=== PATIENT | female | born 1965 | race Two or more races ===

== ENCOUNTER 2017-07-19 09:53 | Inpatient (IN) | payer SELFPAY ==
[~2017-07-19] VITALS: Ht 157.5 cm; Wt 58.2 kg
[2017-07-19 10:39] LABS: Basophils # (auto) 0 uL; Basophils % (auto) 0.4 % (0.0-2.0); Eosinophils # (auto) 0.3 uL; Eosinophils % (auto) 3.8 % (0.0-7.0); Hematocrit 33.2 % (36.0-46.0); Hemoglobin 10.8 g/dL (12.2-16.2); Lymphocytes # (auto) 2.1 uL; Lymphocytes % (auto) 25.1 % (10.0-50.0); Mean Corpuscular Hemoglobin 31.2 pg (28.0-32.0); Mean Corpuscular Hgb Conc. 32.5 g/dL (32.0-36.0); Mean Corpuscular Volume 96.3 fL (80.0-100.0); Monocytes # (auto) 0.7 uL; Monocytes % (auto) 8.5 % (0.0-12.0); Neutrophils # (auto) 5.2 uL; Neutrophils % (auto) 62.2 % (37.0-80.0); Platelet Count (auto) 110 10^3/uL (140-450); Red Blood Cells 3.45 10^6/uL (4.0-5.20); Red Cell Distribution Width 16.3 % (11.8-14.3); White Blood Cell 8.4 10^3/uL (4.4-10.8)
[2017-07-19 11:10] LABS: Albumin 3.7 g/dL (3.4-5.0); BUN/Creatinine Ratio 5.9; Bilirubin, Total 0.7 mg/dL (0.2-1.0); Total Protein 7.8 g/dL (6.4-8.2)
[2017-07-19 11:33] LABS: Urine Bacteria FEW /hpf (None Seen); Urine Blood 2+ /uL (Negative); Urine Specific Gravity 1.011 (1.001-1.035); Urine WBC 56 /hpf (0 - 5)
[2017-07-19] MEDS ORDERED: ALBUTEROL SULF 2.5 MG/0.5ML(0.5%) NEB SOLN NEB STA (12:49)
[2017-07-19] MEDS ORDERED: SODIUM BICARBONATE 8.4% INJ 50ML SYRINGE IV ONE (13:00)
[2017-07-19] MEDS ORDERED: cefTRIAXone 1GM/10ml IVPUSH 10 ML IV ONE ×2 (13:00→13:30)
[2017-07-19] MEDS ORDERED: SODIUM POLYSTYRENE SULF 15GM/60ML SUSP PO ONE (13:00)
[2017-07-19] MEDS ORDERED: CALCIUM GLUC 4.65meq/50ml D5AE 50 ML IV ONE (13:00)
[2017-07-19] MEDS ORDERED: DEXTROSE (50%) 50ML SYRG IV ONE (13:00)
[2017-07-19] MEDS ORDERED: InsuLIN REG 1unit/0.01ml Soln (100units/ml) IV ONE (13:00)
[2017-07-19] MEDS ORDERED: DEXTROSE (50%) 50ML SYRG IV PRN (13:30)
[2017-07-19] MEDS ORDERED: TEMAZEPAM 15 MG CAP PO PRN (13:30)
[2017-07-19] MEDS ORDERED: LABETALOL HCL 200 MG TAB PO ONE (13:30)
[2017-07-19] MEDS ORDERED: MORPHINE SULFATE 4 MG/ML SYR/VIAL IV PRN ×2 (13:30)
[2017-07-19] MEDS ORDERED: NITROGLYCERIN 0.4 MG SL TAB SL PRN (13:30)
[2017-07-19] MEDS ORDERED: HYDROcodone-ACET 5/325MG TAB PO PRN (13:30)
[2017-07-19] MEDS ORDERED: PROMETHAZINE HCL 25 MG/ML 1ML IV PRN (13:30)
[2017-07-19] MEDS ORDERED: LACTULOSE 20Gm/30ML SOLN PO PRN (13:30)
[2017-07-19] MEDS: ACCU-CHEK COMFORT CURVE STRIP VI SCH ×2 (16:32→20:00)
[2017-07-19] MEDS: InsuLIN REG 1unit/0.01ml Soln (100units/ml) SC SCH ×2 (16:38→21:23)
[2017-07-19] MEDS: LABETALOL HCL 200 MG TAB PO SCH (21:24)
[2017-07-20 00:30] VITALS: BP 152/74
[2017-07-20] MEDS: InsuLIN REG 1unit/0.01ml Soln (100units/ml) SC SCH ×6 (00:35→20:55)
[2017-07-20] MEDS: ACCU-CHEK COMFORT CURVE STRIP VI SCH ×6 (04:00→20:54)
[2017-07-20 05:00] VITALS: BP 153/79
[2017-07-20 06:15] LABS: Basophils # (auto) 0 uL; Basophils % (auto) 0.2 % (0.0-2.0); Eosinophils # (auto) 0.1 uL; Eosinophils % (auto) 2.3 % (0.0-7.0); Hematocrit 29.1 % (36.0-46.0); Hemoglobin 9.5 g/dL (12.2-16.2); Lymphocytes # (auto) 1.2 uL; Lymphocytes % (auto) 20.6 % (10.0-50.0); Mean Corpuscular Hemoglobin 31.4 pg (28.0-32.0); Mean Corpuscular Hgb Conc. 32.5 g/dL (32.0-36.0); Mean Corpuscular Volume 96.7 fL (80.0-100.0); Monocytes # (auto) 0.5 uL; Monocytes % (auto) 8.6 % (0.0-12.0); Neutrophils # (auto) 4.1 uL; Neutrophils % (auto) 68.3 % (37.0-80.0); Platelet Count (auto) 72 10^3/uL (140-450); Red Blood Cells 3.01 10^6/uL (4.0-5.20); Red Cell Distribution Width 16.1 % (11.8-14.3); White Blood Cell 5.9 10^3/uL (4.4-10.8)
[2017-07-20] MEDS: LABETALOL HCL 5 MG/ML ML 20ML VIAL IV PRN ×3 (06:29→16:39)
[2017-07-20 06:38] LABS: Calcium 8.4 mg/dL (8.5-10.1); Potassium 4.5 mmol/L (3.5-5.1)
[2017-07-20 06:47] LABS: BUN/Creatinine Ratio 5.1; Bilirubin, Total 0.5 mg/dL (0.2-1.0); Total Protein 6.8 g/dL (6.4-8.2)
[2017-07-20 08:00] VITALS: BP 160/81
[2017-07-20] MEDS ORDERED: cefTRIAXone 1GM/10ml IVPUSH 10 ML IV SCH (09:00)
[2017-07-20] MEDS ORDERED: AMOXICILLIN/CLAVUL 875 MG TAB PO SCH ×2 (10:30→22:00)
[2017-07-20] MEDS: LABETALOL HCL 200 MG TAB PO SCH ×2 (10:33→21:46)
[2017-07-20] MEDS: PANTOPRAZOLE 40 MG TAB PO SCH (10:33)
[2017-07-20] MEDS: ENOXAPARIN SOD 30 MG/0.3 ML SYRINGE SC SCH (10:34)
[2017-07-20] MEDS: AMOXICILLIN/CLAVUL 875 MG TAB PO SCH ×2 (10:36→22:34)
[2017-07-20] MEDS: NIFEdipine ER 30 MG TAB PO SCH (10:37)
[2017-07-20 12:00] VITALS: BP 163/82
[2017-07-20 16:41] VITALS: BP 105/59
[2017-07-20] MEDS ORDERED: MORPHINE SULFATE 8mg/ml INJ SDV IV PRN ×2 (17:00)
[2017-07-20 22:00] VITALS: BP 100/51
[2017-07-21] MEDS: ACCU-CHEK COMFORT CURVE STRIP VI SCH ×6 (04:14→20:29)
[2017-07-21] MEDS: InsuLIN REG 1unit/0.01ml Soln (100units/ml) SC SCH ×6 (04:14→20:38)
[2017-07-21 05:00] VITALS: BP 122/67
[2017-07-21 05:34] LABS: Basophils # (auto) 0 uL; Basophils % (auto) 0.3 % (0.0-2.0); Eosinophils # (auto) 0.3 uL; Eosinophils % (auto) 6.2 % (0.0-7.0); Hematocrit 28.7 % (36.0-46.0); Hemoglobin 9.4 g/dL (12.2-16.2); Lymphocytes # (auto) 1.2 uL; Lymphocytes % (auto) 25.5 % (10.0-50.0); Mean Corpuscular Hemoglobin 31.8 pg (28.0-32.0); Mean Corpuscular Hgb Conc. 32.9 g/dL (32.0-36.0); Mean Corpuscular Volume 96.7 fL (80.0-100.0); Monocytes # (auto) 0.5 uL; Monocytes % (auto) 11.1 % (0.0-12.0); Neutrophils # (auto) 2.7 uL; Neutrophils % (auto) 56.9 % (37.0-80.0); Nucleated Red Blood Cells % 0.1 %; Platelet Count (auto) 74 10^3/uL (140-450); Red Blood Cells 2.97 10^6/uL (4.0-5.20); Red Cell Distribution Width 16.1 % (11.8-14.3); White Blood Cell 4.8 10^3/uL (4.4-10.8)
[2017-07-21 05:58] LABS: BUN/Creatinine Ratio 5.6; Bilirubin, Direct 0.2 mg/dL (0-0.2); Bilirubin, Total 0.5 mg/dL (0.2-1.0); Calcium 7.7 mg/dL (8.5-10.1); Phosphorus 7.3 mg/dL (2.5-4.90); Potassium 4.5 mmol/L (3.5-5.1); Total Protein 6.6 g/dL (6.4-8.2)
[2017-07-21 09:02] VITALS: BP 143/72
[2017-07-21] MEDS: PANTOPRAZOLE 40 MG TAB PO SCH (10:17)
[2017-07-21] MEDS: ENOXAPARIN SOD 30 MG/0.3 ML SYRINGE SC SCH (10:17)
[2017-07-21] MEDS: AMOXICILLIN/CLAVUL 875 MG TAB PO SCH ×2 (10:17→21:55)
[2017-07-21] MEDS: NIFEdipine ER 30 MG TAB PO SCH (10:17)
[2017-07-21] MEDS ORDERED: SEVELAMER 800 MG TAB PO ONE (11:30)
[2017-07-21 13:25] VITALS: BP 154/75
[2017-07-21] MEDS ORDERED: EPOETIN ALFA 10,000 UNIT/1 ML VIAL IV ONE (14:30)
[2017-07-21 16:31] VITALS: BP 144/76
[2017-07-21] MEDS: glipiZIDE 5 MG TAB PO SCH (17:09)
[2017-07-21 22:00] VITALS: BP 106/63
[2017-07-22] MEDS: ACCU-CHEK COMFORT CURVE STRIP VI SCH ×7 (00:26→23:54)
[2017-07-22] MEDS: InsuLIN REG 1unit/0.01ml Soln (100units/ml) SC SCH ×7 (00:26→23:54)
[2017-07-22 05:00] VITALS: BP 129/81
[2017-07-22] MEDS: glipiZIDE 5 MG TAB PO SCH ×2 (06:33→17:57)
[2017-07-22 09:02] VITALS: BP 131/66
[2017-07-22] MEDS: ENOXAPARIN SOD 30 MG/0.3 ML SYRINGE SC SCH (10:44)
[2017-07-22] MEDS: AMOXICILLIN/CLAVUL 875 MG TAB PO SCH ×2 (10:44→21:40)
[2017-07-22] MEDS: PANTOPRAZOLE 40 MG TAB PO SCH (10:45)
[2017-07-22] MEDS ORDERED: SODIUM CHL 0.9% 1000 ML BAG XX ONE (10:45)
[2017-07-22] MEDS: NIFEdipine ER 30 MG TAB PO SCH (10:45)
[2017-07-22 13:00] VITALS: BP 143/74
[2017-07-22 16:54] VITALS: BP 138/64
[2017-07-22 22:00] VITALS: BP 127/66
[2017-07-23] VITALS (7 sets, daily range): BP systolic 130–174; BP diastolic 62–82
[2017-07-23] MEDS: InsuLIN REG 1unit/0.01ml Soln (100units/ml) SC SCH ×5 (04:08→20:00)
[2017-07-23] MEDS: ACCU-CHEK COMFORT CURVE STRIP VI SCH ×5 (04:08→20:00)
[2017-07-23] MEDS: glipiZIDE 5 MG TAB PO SCH (07:00)
[2017-07-23] MEDS: ENOXAPARIN SOD 30 MG/0.3 ML SYRINGE SC SCH (10:00)
[2017-07-23] MEDS ORDERED: EPOETIN ALFA 10,000 UNIT/1 ML VIAL IV ONE (10:45)
[2017-07-23] MEDS: AMOXICILLIN/CLAVUL 875 MG TAB PO SCH ×2 (11:39→22:12)
[2017-07-23] MEDS: NIFEdipine ER 30 MG TAB PO SCH (11:39)
[2017-07-23] MEDS: PANTOPRAZOLE 40 MG TAB PO SCH (11:39)
[2017-07-23] MEDS: SEVELAMER 800 MG TAB PO SCH ×2 (11:57→17:44)
[2017-07-23] MEDS: CALCIUM ACETATE 667 MG CAP PO SCH ×2 (11:57→17:43)
[2017-07-24] MEDS: InsuLIN REG 1unit/0.01ml Soln (100units/ml) SC SCH ×6 (04:28→20:16)
[2017-07-24] MEDS: ACCU-CHEK COMFORT CURVE STRIP VI SCH ×6 (04:29→20:03)
[2017-07-24 05:00] VITALS: BP 142/67
[2017-07-24] MEDS: CALCIUM ACETATE 667 MG CAP PO SCH ×3 (08:32→15:32)
[2017-07-24] MEDS: SEVELAMER 800 MG TAB PO SCH ×3 (08:32→15:32)
[2017-07-24] MEDS: AMOXICILLIN/CLAVUL 875 MG TAB PO SCH ×2 (08:33→21:59)
[2017-07-24] MEDS: PANTOPRAZOLE 40 MG TAB PO SCH (08:34)
[2017-07-24] MEDS: ENOXAPARIN SOD 30 MG/0.3 ML SYRINGE SC SCH (08:34)
[2017-07-24 09:00] VITALS: BP 147/75
[2017-07-24] MEDS: NIFEdipine ER 30 MG TAB PO SCH (09:43)
[2017-07-24 11:57] LABS: % Iron Saturation 39.4 % (15-50)
[2017-07-24 12:34] VITALS: BP 152/77
[2017-07-24] MEDS ORDERED: CALCIUM CARB 500 MG CHEW TAB PO STA (13:11)
[2017-07-24] MEDS ORDERED: FAMOTIDINE (10MG/ML) 2ML VL IV STA (16:25)
[2017-07-24 16:43] VITALS: BP 135/81
[2017-07-24 19:39] LABS: Albumin 3.2 g/dL (3.4-5.0); Bilirubin, Direct 0.1 mg/dL (0-0.2); Bilirubin, Total 0.4 mg/dL (0.2-1.0); Total Protein 6.8 g/dL (6.4-8.2)
[2017-07-24] MEDS ORDERED: FAMOTIDINE (10MG/ML) 2ML VL IV PRN (21:00)
[2017-07-24 21:56] VITALS: BP 151/78
[2017-07-25] MEDS: LORazepam 0.5 MG TAB PO PRN ×2 (04:01→10:12)
[2017-07-25] MEDS: ACCU-CHEK COMFORT CURVE STRIP VI SCH ×6 (04:30→20:03)
[2017-07-25] MEDS: InsuLIN REG 1unit/0.01ml Soln (100units/ml) SC SCH ×6 (04:45→20:04)
[2017-07-25 04:56] VITALS: BP 146/74
[2017-07-25] MEDS ORDERED: PREG75CA PO (05:10)
[2017-07-25 06:00] LABS: Basophils # (auto) 0 uL; Basophils % (auto) 0.5 % (0.0-2.0); Eosinophils # (auto) 0.2 uL; Eosinophils % (auto) 3.6 % (0.0-7.0); Hematocrit 28.8 % (36.0-46.0); Hemoglobin 9.7 g/dL (12.2-16.2); Lymphocytes # (auto) 1.1 uL; Lymphocytes % (auto) 20.5 % (10.0-50.0); Mean Corpuscular Hemoglobin 32.2 pg (28.0-32.0); Mean Corpuscular Hgb Conc. 33.5 g/dL (32.0-36.0); Mean Corpuscular Volume 96.1 fL (80.0-100.0); Monocytes # (auto) 0.5 uL; Monocytes % (auto) 9.4 % (0.0-12.0); Neutrophils # (auto) 3.5 uL; Platelet Count (auto) 94 10^3/uL (140-450); Red Cell Distribution Width 14.9 % (11.8-14.3); White Blood Cell 5.3 10^3/uL (4.4-10.8)
[2017-07-25 06:23] LABS: Albumin 3.2 g/dL (3.4-5.0); BUN/Creatinine Ratio 5.3; Bilirubin, Total 0.5 mg/dL (0.2-1.0); Phosphorus 4.5 mg/dL (2.5-4.90); Potassium 5.2 mmol/L (3.5-5.1); Total Protein 6.9 g/dL (6.4-8.2)
[2017-07-25] MEDS: SEVELAMER 800 MG TAB PO SCH ×3 (08:00→17:21)
[2017-07-25] MEDS: CALCIUM ACETATE 667 MG CAP PO SCH ×3 (08:00→17:20)
[2017-07-25] MEDS ORDERED: EPOETIN ALFA 10,000 UNIT/1 ML VIAL IV ONE (09:30)
[2017-07-25] MEDS: PANTOPRAZOLE 40 MG TAB PO SCH (10:00)
[2017-07-25] MEDS: ENOXAPARIN SOD 30 MG/0.3 ML SYRINGE SC SCH (10:00)
[2017-07-25] MEDS: NIFEdipine ER 30 MG TAB PO SCH (10:24)
[2017-07-25] MEDS ORDERED: PREGABALIN CAPSULE 75 MG CAP PO SCH (10:30)
[2017-07-25] MEDS: PREGABALIN 75MG CAPSULE PO SCH (10:30)
[2017-07-25] MEDS ORDERED: SODIUM POLYSTYRENE SULF 15GM/60ML SUSP PO ONE (10:45)
[2017-07-25] MEDS: ALBUTEROL SULF 2.5 MG/0.5ML(0.5%) NEB SOLN NEB SCH ×3 (11:27→23:58)
[2017-07-25] MEDS: IPRATROPIUM BROM 0.5 MG/2.5ML INH SOL NEB SCH ×3 (11:27→23:57)
[2017-07-25] MEDS: Boost Glucose Control 8 Ounces PO SCH ×3 (12:00→18:07)
[2017-07-25] MEDS: LABETALOL HCL 5 MG/ML ML 20ML VIAL IV PRN ×2 (12:12→17:23)
[2017-07-25 12:23] VITALS: BP 194/104
[2017-07-25 16:53] VITALS: BP 186/90
[2017-07-25 17:15] VITALS: BP 172/81
[2017-07-25] MEDS: ACETAMINOPHEN 500 MG TAB PO PRN (20:43)
[2017-07-25 21:41] VITALS: BP 135/70
[2017-07-26] MEDS: ACCU-CHEK COMFORT CURVE STRIP VI SCH ×7 (00:18→23:21)
[2017-07-26] MEDS: InsuLIN REG 1unit/0.01ml Soln (100units/ml) SC SCH ×7 (00:26→23:20)
[2017-07-26 06:01] VITALS: BP 137/66
[2017-07-26 06:01] LABS: Basophils # (auto) 0 uL; Basophils % (auto) 0.3 % (0.0-2.0); Eosinophils # (auto) 0.1 uL; Eosinophils % (auto) 1.8 % (0.0-7.0); Hematocrit 28.9 % (36.0-46.0); Hemoglobin 9.7 g/dL (12.2-16.2); Lymphocytes # (auto) 1.3 uL; Lymphocytes % (auto) 17.6 % (10.0-50.0); Mean Corpuscular Hemoglobin 31.8 pg (28.0-32.0); Mean Corpuscular Hgb Conc. 33.4 g/dL (32.0-36.0); Monocytes # (auto) 0.8 uL; Monocytes % (auto) 11.2 % (0.0-12.0); Neutrophils # (auto) 5.1 uL; Neutrophils % (auto) 69.1 % (37.0-80.0); Platelet Count (auto) 116 10^3/uL (140-450); Red Blood Cells 3.04 10^6/uL (4.0-5.20); Red Cell Distribution Width 14.8 % (11.8-14.3); White Blood Cell 7.4 10^3/uL (4.4-10.8)
[2017-07-26] MEDS: ALBUTEROL SULF 2.5 MG/0.5ML(0.5%) NEB SOLN NEB SCH ×3 (06:05→19:06)
[2017-07-26] MEDS: IPRATROPIUM BROM 0.5 MG/2.5ML INH SOL NEB SCH ×3 (06:05→19:06)
[2017-07-26 06:13] LABS: BUN/Creatinine Ratio 3.9; Calcium 7.2 mg/dL (8.5-10.1); Potassium 3.9 mmol/L (3.5-5.1)
[2017-07-26] MEDS: Boost Glucose Control 8 Ounces PO SCH ×2 (07:39→12:00)
[2017-07-26] MEDS: SEVELAMER 800 MG TAB PO SCH ×3 (07:44→17:41)
[2017-07-26] MEDS: CALCIUM ACETATE 667 MG CAP PO SCH ×3 (07:45→17:41)
[2017-07-26 09:00] VITALS: BP 135/74
[2017-07-26] MEDS: ENOXAPARIN SOD 30 MG/0.3 ML SYRINGE SC SCH (09:27)
[2017-07-26] MEDS: ACETAMINOPHEN 500 MG TAB PO PRN (09:27)
[2017-07-26] MEDS: NIFEdipine ER 30 MG TAB PO SCH (09:28)
[2017-07-26] MEDS: PANTOPRAZOLE 40 MG TAB PO SCH (09:28)
[2017-07-26] MEDS: FUROSEMIDE 40 MG/4 ML VIAL IV SCH (12:15)
[2017-07-26] MEDS ORDERED: EPOETIN ALFA 3,000 UNIT/1 ML VIAL IV ONE (12:30)
[2017-07-26] MEDS ORDERED: SODIUM CHL 0.9% 1000 ML BAG XX ONE (12:30)
[2017-07-26] MEDS ORDERED: EPOETIN ALFA 2,000 UNIT/1 ML VIAL IV ONE (12:45)
[2017-07-26 13:00] VITALS: BP 144/69
[2017-07-26 17:00] VITALS: BP 135/76
[2017-07-26 21:01] VITALS: BP 154/80
[2017-07-26] MEDS: PREGABALIN 75MG CAPSULE PO SCH (21:14)
[2017-07-26] MEDS: Novasource Renal 8 Ounces PO SCH (22:00)
[2017-07-27] MEDS: ACCU-CHEK COMFORT CURVE STRIP VI SCH ×5 (04:24→21:02)
[2017-07-27] MEDS: InsuLIN REG 1unit/0.01ml Soln (100units/ml) SC SCH ×5 (04:24→19:59)
[2017-07-27 05:09] VITALS: BP 136/77
[2017-07-27] MEDS: IPRATROPIUM BROM 0.5 MG/2.5ML INH SOL NEB SCH ×4 (05:54→18:54)
[2017-07-27] MEDS: ALBUTEROL SULF 2.5 MG/0.5ML(0.5%) NEB SOLN NEB SCH ×4 (05:54→18:55)
[2017-07-27] MEDS: SEVELAMER 800 MG TAB PO SCH ×3 (08:00→18:00)
[2017-07-27] MEDS: CALCIUM ACETATE 667 MG CAP PO SCH ×3 (08:00→18:00)
[2017-07-27 09:00] VITALS: BP 149/76
[2017-07-27] MEDS: FUROSEMIDE 40 MG/4 ML VIAL IV SCH (10:00)
[2017-07-27] MEDS: ENOXAPARIN SOD 30 MG/0.3 ML SYRINGE SC SCH (10:00)
[2017-07-27] MEDS: PANTOPRAZOLE 40 MG TAB PO SCH (10:25)
[2017-07-27] MEDS: NIFEdipine ER 30 MG TAB PO SCH (10:26)
[2017-07-27] MEDS: Novasource Renal 8 Ounces PO SCH ×2 (10:29→22:00)
[2017-07-27 12:29] VITALS: BP 151/71
[2017-07-27 17:00] VITALS: BP 144/76
[2017-07-27] MEDS ORDERED: PATIENTS OWN MEDICATION PO SCH (22:00)
[2017-07-27 22:08] VITALS: BP 151/74
[2017-07-27] MEDS: PREGABALIN 75 MG PO SCH (22:22)
[2017-07-28] VITALS (8 sets, daily range): BP systolic 121–173; BP diastolic 65–89
[2017-07-28] MEDS: InsuLIN REG 1unit/0.01ml Soln (100units/ml) SC SCH ×6 (00:58→20:08)
[2017-07-28] MEDS: ACCU-CHEK COMFORT CURVE STRIP VI SCH ×6 (00:59→19:52)
[2017-07-28] MEDS: IPRATROPIUM BROM 0.5 MG/2.5ML INH SOL NEB SCH ×4 (06:28→19:40)
[2017-07-28] MEDS: ALBUTEROL SULF 2.5 MG/0.5ML(0.5%) NEB SOLN NEB SCH ×4 (06:28→19:40)
[2017-07-28] MEDS: SEVELAMER 800 MG TAB PO SCH ×3 (08:00→18:00)
[2017-07-28] MEDS: CALCIUM ACETATE 667 MG CAP PO SCH ×3 (08:00→18:00)
[2017-07-28] MEDS: PANTOPRAZOLE 40 MG TAB PO SCH (10:00)
[2017-07-28] MEDS: FUROSEMIDE 40 MG/4 ML VIAL IV SCH (10:00)
[2017-07-28] MEDS: NIFEdipine ER 30 MG TAB PO SCH (10:00)
[2017-07-28] MEDS: ENOXAPARIN SOD 30 MG/0.3 ML SYRINGE SC SCH (10:00)
[2017-07-28] MEDS: Novasource Renal 8 Ounces PO SCH ×2 (11:48→21:51)
[2017-07-28] MEDS ORDERED: EPOETIN ALFA 10,000 UNIT/1 ML VIAL IV ONE (16:30)
[2017-07-28] MEDS: LABETALOL HCL 5 MG/ML ML 20ML VIAL IV PRN ×2 (18:05→19:52)
[2017-07-28] MEDS: PREGABALIN 75 MG PO SCH (21:49)
[2017-07-29] MEDS: InsuLIN REG 1unit/0.01ml Soln (100units/ml) SC SCH ×7 (04:00→23:55)
[2017-07-29] MEDS: ACCU-CHEK COMFORT CURVE STRIP VI SCH ×7 (04:00→23:42)
[2017-07-29 05:07] VITALS: BP 166/88
[2017-07-29] MEDS: ALBUTEROL SULF 2.5 MG/0.5ML(0.5%) NEB SOLN NEB SCH ×3 (06:53→18:00)
[2017-07-29] MEDS: IPRATROPIUM BROM 0.5 MG/2.5ML INH SOL NEB SCH ×3 (06:53→18:00)
[2017-07-29] MEDS: CALCIUM ACETATE 667 MG CAP PO SCH ×3 (08:00→17:28)
[2017-07-29] MEDS: SEVELAMER 800 MG TAB PO SCH ×3 (08:00→17:28)
[2017-07-29 08:07] LABS: Basophils # (auto) 0 uL; Basophils % (auto) 0.6 % (0.0-2.0); Eosinophils # (auto) 0.3 uL; Eosinophils % (auto) 5.2 % (0.0-7.0); Hematocrit 29.1 % (36.0-46.0); Hemoglobin 9.5 g/dL (12.2-16.2); Lymphocytes # (auto) 1.4 uL; Lymphocytes % (auto) 26.1 % (10.0-50.0); Mean Corpuscular Hemoglobin 30.9 pg (28.0-32.0); Mean Corpuscular Hgb Conc. 32.6 g/dL (32.0-36.0); Mean Corpuscular Volume 94.9 fL (80.0-100.0); Monocytes # (auto) 0.7 uL; Monocytes % (auto) 13.7 % (0.0-12.0); Neutrophils % (auto) 54.4 % (37.0-80.0); Nucleated Red Blood Cells % 0.1 %; Platelet Count (auto) 132 10^3/uL (140-450); Red Blood Cells 3.06 10^6/uL (4.0-5.20); Red Cell Distribution Width 15.3 % (11.8-14.3); White Blood Cell 5.4 10^3/uL (4.4-10.8)
[2017-07-29 08:25] LABS: BUN/Creatinine Ratio 4.2; Calcium 7.1 mg/dL (8.5-10.1); Potassium 4.7 mmol/L (3.5-5.1)
[2017-07-29 09:20] VITALS: BP 163/76
[2017-07-29] MEDS: NIFEdipine ER 30 MG TAB PO SCH (09:57)
[2017-07-29] MEDS: PANTOPRAZOLE 40 MG TAB PO SCH (09:57)
[2017-07-29] MEDS: FUROSEMIDE 40 MG/4 ML VIAL IV SCH (09:58)
[2017-07-29] MEDS: ENOXAPARIN SOD 30 MG/0.3 ML SYRINGE SC SCH (09:59)
[2017-07-29] MEDS: Novasource Renal 8 Ounces PO SCH ×2 (10:41→21:35)
[2017-07-29 13:00] VITALS: BP 162/84
[2017-07-29] MEDS: LABETALOL HCL 5 MG/ML ML 20ML VIAL IV PRN ×2 (13:12→21:33)
[2017-07-29 17:00] VITALS: BP 117/63
[2017-07-29] MEDS: PREGABALIN 75 MG PO SCH (21:34)
[2017-07-29 22:06] VITALS: BP 157/80
[2017-07-30] MEDS: InsuLIN REG 1unit/0.01ml Soln (100units/ml) SC SCH ×5 (04:00→21:40)
[2017-07-30] MEDS: ACCU-CHEK COMFORT CURVE STRIP VI SCH ×5 (04:20→21:40)
[2017-07-30 05:00] VITALS: BP 151/85
[2017-07-30] MEDS: ALBUTEROL SULF 2.5 MG/0.5ML(0.5%) NEB SOLN NEB SCH ×4 (06:43→17:56)
[2017-07-30] MEDS: IPRATROPIUM BROM 0.5 MG/2.5ML INH SOL NEB SCH ×4 (06:43→17:56)
[2017-07-30] MEDS: CALCIUM ACETATE 667 MG CAP PO SCH ×3 (08:00→17:38)
[2017-07-30] MEDS: SEVELAMER 800 MG TAB PO SCH ×3 (08:00→17:46)
[2017-07-30 09:00] VITALS: BP 164/89
[2017-07-30] MEDS: FUROSEMIDE 40 MG/4 ML VIAL IV SCH (10:13)
[2017-07-30] MEDS: ENOXAPARIN SOD 30 MG/0.3 ML SYRINGE SC SCH (10:13)
[2017-07-30] MEDS: PANTOPRAZOLE 40 MG TAB PO SCH (10:14)
[2017-07-30] MEDS: NIFEdipine ER 30 MG TAB PO SCH (10:14)
[2017-07-30] MEDS: Novasource Renal 8 Ounces PO SCH ×2 (11:09→21:40)
[2017-07-30] MEDS: LABETALOL HCL 5 MG/ML ML 20ML VIAL IV PRN (11:45)
[2017-07-30 13:00] VITALS: BP 125/66
[2017-07-30 17:00] VITALS: BP 134/74
[2017-07-30] MEDS: PREGABALIN 75 MG PO SCH (21:40)
[2017-07-30 23:41] VITALS: BP 123/70
[2017-07-31] MEDS: InsuLIN REG 1unit/0.01ml Soln (100units/ml) SC SCH ×4 (00:11→11:46)
[2017-07-31] MEDS: ACCU-CHEK COMFORT CURVE STRIP VI SCH ×4 (00:11→11:45)
[2017-07-31 04:52] VITALS: BP 129/65
[2017-07-31] MEDS: IPRATROPIUM BROM 0.5 MG/2.5ML INH SOL NEB SCH ×2 (06:25→11:37)
[2017-07-31] MEDS: ALBUTEROL SULF 2.5 MG/0.5ML(0.5%) NEB SOLN NEB SCH ×2 (06:26→11:37)
[2017-07-31] MEDS ORDERED: EPOETIN ALFA 10,000 UNIT/1 ML VIAL IV ONE (07:45)
[2017-07-31 07:46] LABS: BUN/Creatinine Ratio 4.3; Potassium 4.5 mmol/L (3.5-5.1)
[2017-07-31] MEDS: SEVELAMER 800 MG TAB PO SCH (08:28)
[2017-07-31] MEDS: CALCIUM ACETATE 667 MG CAP PO SCH (08:28)
[2017-07-31 08:47] VITALS: BP 129/65
[2017-07-31 09:00] VITALS: BP 159/80
[2017-07-31 13:00] VITALS: BP 162/82
[2017-07-31] MEDS: FUROSEMIDE 40 MG/4 ML VIAL IV SCH (15:33)
[2017-07-31] MEDS: NIFEdipine ER 30 MG TAB PO SCH (15:33)
[2017-07-31] MEDS: PANTOPRAZOLE 40 MG TAB PO SCH (15:33)
[2017-07-31] MEDS: ENOXAPARIN SOD 30 MG/0.3 ML SYRINGE SC SCH (15:34)
[2017-07-31] MEDS: Novasource Renal 8 Ounces PO SCH (15:40)
[2017-07-31 17:00] VITALS: BP 152/77
[2017-07-31 17:14] VITALS: BP 152/77
== END 2017-07-31 18:15 | disposition home or self-care (01) | DRG 682 ==
LOC: ER 09:53 → TELE 09:54 → TELE-WESTW 23:37
PROVIDERS: ADMIT Internal Medicine; ATTEND Family Medicine
PROC: 5A1D70Z Performance of Urinary Filtration, Intermittent, Less than 6 Hours Per Day (ICD-10-PCS; principal; 2017-07-19)
PROC: 5A1D70Z Performance of Urinary Filtration, Intermittent, Less than 6 Hours Per Day (ICD-10-PCS; 2017-07-23)
PROC: 5A1D70Z Performance of Urinary Filtration, Intermittent, Less than 6 Hours Per Day (ICD-10-PCS; 2017-07-25)
PROC: 5A1D70Z Performance of Urinary Filtration, Intermittent, Less than 6 Hours Per Day (ICD-10-PCS; 2017-07-28)
PROC: 5A1D70Z Performance of Urinary Filtration, Intermittent, Less than 6 Hours Per Day (ICD-10-PCS; 2017-07-31)
DX: I12.0 Hypertensive chronic kidney disease with stage 5 chronic kidney disease or end stage renal disease (principal); N18.6 End stage renal disease; E11.21 Type 2 diabetes mellitus with diabetic nephropathy; E44.0 Moderate protein-calorie malnutrition; E11.65 Type 2 diabetes mellitus with hyperglycemia; N39.0 Urinary tract infection, site not specified; N25.81 Secondary hyperparathyroidism of renal origin; E87.1 Hypo-osmolality and hyponatremia; E87.5 Hyperkalemia; K59.00 Constipation, unspecified; G47.00 Insomnia, unspecified; I16.0 Hypertensive urgency; E87.6 Hypokalemia; E83.39 Other disorders of phosphorus metabolism; B19.20 Unspecified viral hepatitis C without hepatic coma; D64.9 Anemia, unspecified; E11.22 Type 2 diabetes mellitus with diabetic chronic kidney disease; Z68.23 Body mass index [BMI] 23.0-23.9, adult; Z79.4 Long term (current) use of insulin; Z83.3 Family history of diabetes mellitus; Z99.2 Dependence on renal dialysis; Z71.3 Dietary counseling and surveillance
CPT/HCPCS: 36415; 71046; 74018; 80048; 80053; 80061; 80076; 81001; 82306; 82728; 82962; 83036; 83540; 83550; 83690; 83970; 84100; 84132; 84443; 85025; 85652; 86803; 87086; 87340; 90935; 93005; 93970; 94640; 96374; 96375; J0610; J0885; J1642; J1815; J3490; Q4081

== ENCOUNTER 2017-08-27 05:55 | Inpatient (IN) | payer MEDICAID ==
[~2017-08-27] VITALS: Ht 160 cm; Wt 59.7 kg
[~2017-08-27 05:55] MED LIST: PREG75CA PO
[2017-08-27] MEDS ORDERED: cloNIDine HCL 0.1 MG TAB PO ONE (07:15)
[2017-08-27 08:33] LABS: Basophils # (auto) 0 uL; Basophils % (auto) 0.5 % (0.0-2.0); Eosinophils # (auto) 0.2 uL; Eosinophils % (auto) 3.3 % (0.0-7.0); Hematocrit 33.1 % (36.0-46.0); Hemoglobin 10.7 g/dL (12.2-16.2); Lymphocytes # (auto) 1.3 uL; Lymphocytes % (auto) 22.4 % (10.0-50.0); Mean Corpuscular Hemoglobin 30.1 pg (28.0-32.0); Mean Corpuscular Hgb Conc. 32.2 g/dL (32.0-36.0); Mean Corpuscular Volume 93.5 fL (80.0-100.0); Monocytes # (auto) 0.4 uL; Monocytes % (auto) 7.3 % (0.0-12.0); Neutrophils # (auto) 3.7 uL; Neutrophils % (auto) 66.5 % (37.0-80.0); Platelet Count (auto) 89 10^3/uL (140-450); Red Blood Cells 3.54 10^6/uL (4.0-5.20); Red Cell Distribution Width 15.4 % (11.8-14.3); White Blood Cell 5.6 10^3/uL (4.4-10.8)
[2017-08-27 08:51] LABS: INR 1.02 (0.9-1.15); Partial Thromboplastin Time 25.4 sec (23.78-33.04); Prothrombin Time 10.9 sec (9.27-12.13)
[2017-08-27 08:56] LABS: Albumin 3.3 g/dL (3.4-5.0); BUN/Creatinine Ratio 4.9; Bilirubin, Total 0.6 mg/dL (0.2-1.0); Calcium 8.2 mg/dL (8.5-10.1); Total Protein 7.2 g/dL (6.4-8.2)
[2017-08-27 08:59] LABS: Potassium 6.9 mmol/L (3.5-5.1)
[2017-08-27] MEDS ORDERED: ALBUTEROL SULF 2.5 MG/0.5ML(0.5%) NEB SOLN NEB STA (09:48)
[2017-08-27] MEDS ORDERED: SODIUM POLYSTYRENE SULF 15GM/60ML SUSP PO ONE (10:00)
[2017-08-27] MEDS ORDERED: SODIUM BICARBONATE 8.4% INJ 50ML SYRINGE IV ONE (10:00)
[2017-08-27] MEDS ORDERED: InsuLIN REG 1unit/0.01ml Soln (100units/ml) IV ONE (10:00)
[2017-08-27] MEDS ORDERED: DEXTROSE (50%) 50ML SYRG IV ONE (10:00)
[2017-08-27] MEDS ORDERED: CALCIUM GLUC 4.65meq/50ml D5AE 50 ML IV ONE (10:00)
[2017-08-27] MEDS ORDERED: HYDROcodone-ACET 5/325MG TAB PO PRN (10:15)
[2017-08-27] MEDS ORDERED: DEXTROSE (50%) 50ML SYRG IV PRN (10:15)
[2017-08-27] MEDS ORDERED: ALUM & MAG HYDROX-SIMETH LIQ(MAALOX) 30 ML PO ONE (10:30)
[2017-08-27] MEDS ORDERED: NITROGLYCERIN 0.4 MG SL TAB SL PRN ×2 (10:30)
[2017-08-27] MEDS ORDERED: LORazepam 0.5 MG TAB PO PRN (10:30)
[2017-08-27] MEDS ORDERED: ZOLPIDEM TARTRATE 5 MG TAB PO PRN (10:30)
[2017-08-27] MEDS ORDERED: ACETAMINOPHEN 325 MG TAB PO PRN (10:30)
[2017-08-27] MEDS ORDERED: MORPHINE SULF INJ 2 MG/ML SYRINGE 1ML IV PRN ×2 (10:30)
[2017-08-27] MEDS ORDERED: ONDANSETRON HCL 4 MG/2 ML VIAL IV PRN (10:30)
[2017-08-27] MEDS: ASPirin 81 mg TAB PO SCH (10:45)
[2017-08-27] MEDS: CLOPIDOGREL BISULFATE 75 MG TAB PO SCH (10:55)
[2017-08-27] MEDS: CARVEDILOL 3.125 MG TAB PO SCH ×2 (10:55→21:39)
[2017-08-27] MEDS ORDERED: SODIUM CHL 0.9% 1000 ML BAG XX ONE (11:30)
[2017-08-27] MEDS ORDERED: EPOETIN ALFA 10,000 UNIT/1 ML VIAL IV ONE (11:30)
[2017-08-27] MEDS: ALBUTEROL SULF 2.5 MG/0.5ML(0.5%) NEB SOLN NEB SCH ×2 (11:42→18:40)
[2017-08-27] MEDS: cloNIDine HCL 0.1 MG TAB PO PRN ×2 (11:47→22:40)
[2017-08-27] MEDS: InsuLIN REG 1unit/0.01ml Soln (100units/ml) SC SCH ×2 (11:48→17:56)
[2017-08-27] MEDS: ACCU-CHEK COMFORT CURVE STRIP VI SCH ×3 (11:48→22:00)
[2017-08-27] MEDS: CALCIUM ACETATE 667 MG CAP PO SCH ×2 (12:00→18:00)
[2017-08-27] MEDS ORDERED: SEVELAMER 800 MG TAB PO SCH (12:00)
[2017-08-27] MEDS: Boost Glucose Control 8 Ounces PO SCH ×2 (12:00→18:00)
[2017-08-27 12:33] VITALS: BP 190/90
[2017-08-27] MEDS ORDERED: LIDOCAINE 1% HCL (LOCAL ANESTH.) INJ 20ML MDV ID ONE (13:15)
[2017-08-27] MEDS ORDERED: LIDOCAINE 1% (LOCAL ANESTH.) PF 5ml SDV ONE (13:16)
[2017-08-27 13:27] LABS: Urine Bacteria NONE SEEN /hpf (None Seen); Urine Blood TRACE /uL (Negative); Urine Specific Gravity 1.007 (1.001-1.035); Urine WBC 57 /hpf (0 - 5)
[2017-08-27] MEDS: SODIUM CHLOR 0.9% PF (SALINE LOCK) 10ML VIAL/SYR IV SCH ×2 (14:24→21:39)
[2017-08-27 14:49] LABS: Potassium 3.7 mmol/L (3.5-5.1)
[2017-08-27] MEDS: FUROSEMIDE 20 MG TAB PO SCH (17:56)
[2017-08-27 19:56] VITALS: BP 170/92
[2017-08-27 20:00] VITALS: BP 199/81
[2017-08-27 22:00] VITALS: BP 199/81
[2017-08-27] MEDS ORDERED: ENALAPRIL MALEATE 2.5 MG TAB PO SCH (22:00)
[2017-08-27] MEDS ORDERED: InsuLIN REG 1unit/0.01ml Soln (100units/ml) SC SCH (22:00)
[2017-08-27] MEDS ORDERED: ATORVASTATIN 20 MG TAB PO SCH (22:00)
[2017-08-28] MEDS ORDERED: hydrALAZINE HCL 20 MG/ML VL IV PRN (00:30)
[2017-08-28] MEDS: ALBUTEROL SULF 2.5 MG/0.5ML(0.5%) NEB SOLN NEB SCH ×3 (01:41→14:18)
[2017-08-28 04:50] VITALS: BP 147/76
[2017-08-28] MEDS: SODIUM CHLOR 0.9% PF (SALINE LOCK) 10ML VIAL/SYR IV SCH ×2 (06:13→14:12)
[2017-08-28] MEDS: ACCU-CHEK COMFORT CURVE STRIP VI SCH ×3 (06:14→17:25)
[2017-08-28] MEDS: FUROSEMIDE 20 MG TAB PO SCH (06:14)
[2017-08-28] MEDS: InsuLIN REG 1unit/0.01ml Soln (100units/ml) SC SCH ×3 (06:14→17:00)
[2017-08-28 07:30] VITALS: BP 159/82
[2017-08-28 08:00] VITALS: BP 147/76
[2017-08-28] MEDS: CALCIUM ACETATE 667 MG CAP PO SCH ×2 (08:00→13:43)
[2017-08-28] MEDS: Boost Glucose Control 8 Ounces PO SCH ×2 (08:00→12:00)
[2017-08-28 08:38] LABS: Basophils # (auto) 0 uL; Basophils % (auto) 0.4 % (0.0-2.0); Eosinophils # (auto) 0.1 uL; Eosinophils % (auto) 3.4 % (0.0-7.0); Hematocrit 31.6 % (36.0-46.0); Hemoglobin 10.4 g/dL (12.2-16.2); Lymphocytes % (auto) 25.5 % (10.0-50.0); Mean Corpuscular Hemoglobin 30.4 pg (28.0-32.0); Mean Corpuscular Hgb Conc. 32.8 g/dL (32.0-36.0); Mean Corpuscular Volume 92.5 fL (80.0-100.0); Monocytes # (auto) 0.4 uL; Monocytes % (auto) 9.3 % (0.0-12.0); Neutrophils # (auto) 2.5 uL; Neutrophils % (auto) 61.4 % (37.0-80.0); Platelet Count (auto) 77 10^3/uL (140-450); Red Blood Cells 3.41 10^6/uL (4.0-5.20); Red Cell Distribution Width 15.5 % (11.8-14.3)
[2017-08-28 08:45] LABS: Albumin 3.2 g/dL (3.4-5.0); BUN/Creatinine Ratio 3.4; Bilirubin, Total 0.5 mg/dL (0.2-1.0); Calcium 8.1 mg/dL (8.5-10.1); Magnesium 2.7 mg/dL (1.6-2.6); Potassium 4.2 mmol/L (3.5-5.1); Total Protein 6.7 g/dL (6.4-8.2)
[2017-08-28] MEDS: CARVEDILOL 3.125 MG TAB PO SCH (09:25)
[2017-08-28] MEDS: ASPirin 81 mg TAB PO SCH (09:25)
[2017-08-28] MEDS: CLOPIDOGREL BISULFATE 75 MG TAB PO SCH (09:25)
[2017-08-28] MEDS ORDERED: DOCUSATE SOD 100 MG CAP PO SCH (10:00)
[2017-08-28] MEDS ORDERED: [UNRECOGNIZED DRUG - OTHER] PO SCH (10:00)
[2017-08-28] MEDS ORDERED: NIFEdipine ER 30 MG TAB PO SCH ×2 (10:00)
[2017-08-28] MEDS ORDERED: ENALAPRIL MALEATE 2.5 MG TAB PO SCH (10:00)
[2017-08-28 12:29] VITALS: BP 160/81
[2017-08-28 13:27] VITALS: BP 158/82
[2017-08-28 16:30] VITALS: BP 123/60
== END 2017-08-28 17:24 | disposition home or self-care (01) | DRG 194 ==
LOC: EDUNIT# 05:55 → ER 06:04 → TELE 06:05 → TELE-WESTW 19:00
PROVIDERS: ADMIT Internal Medicine; ATTEND Internal Medicine
PROC: 5A1D70Z Performance of Urinary Filtration, Intermittent, Less than 6 Hours Per Day (ICD-10-PCS; principal; 2017-08-27)
DX: I13.2 Hypertensive heart and chronic kidney disease with heart failure and with stage 5 chronic kidney disease, or end stage renal disease (principal); N18.6 End stage renal disease; E11.21 Type 2 diabetes mellitus with diabetic nephropathy; E44.0 Moderate protein-calorie malnutrition; D69.6 Thrombocytopenia, unspecified; E11.22 Type 2 diabetes mellitus with diabetic chronic kidney disease; E83.51 Hypocalcemia; E87.5 Hyperkalemia; D63.8 Anemia in other chronic diseases classified elsewhere; E78.5 Hyperlipidemia, unspecified; Z82.49 Family history of ischemic heart disease and other diseases of the circulatory system; Z99.2 Dependence on renal dialysis; Z83.3 Family history of diabetes mellitus; R07.89 Other chest pain; B19.20 Unspecified viral hepatitis C without hepatic coma; I50.43 Acute on chronic combined systolic (congestive) and diastolic (congestive) heart failure; Z68.23 Body mass index [BMI] 23.0-23.9, adult
CPT/HCPCS: 36415; 71046; 80053; 80061; 81001; 82962; 83036; 83735; 83880; 84132; 84443; 84484; 85025; 85610; 85730; 93005; 93306; 94640; 96365; 96375; J0610; J0885; J1642; J1815